=== PATIENT | female | born 1990 | race American Indian/Alaskan Native ===

== ENCOUNTER 2017-01-20 10:12 | Emergency (ER) | payer OTHER, MEDICAID ==
[2017-01-20 12:18] VITALS: BP 120/86
[2017-01-20] MEDS ORDERED: TORADOL IM ONE (15:40)
[2017-01-20] MEDS ORDERED: NORCO 5/325 PO ONE (15:40)
--- NOTE | 2017-01-20 15:41 | Emergency Department Report ---
ED Back Pain/Injury HPI - General Chief Complaint: Back Pain/Injury Stated Complaint: LOWER BACK PAIN Time Seen by Provider: 01/20/17 15:26 Source: patient Limitations: No Limitations - History of Present Illness Initial Comments: 26-year-old -[place] female with a past medical history of migraines and early menopause comes in with complaint of lower back pain that started on Thursday. Patient reports that the pain is worse with standing and moving all feels like it's pulling. Patient reports it is radiating down her right leg. She has tried ibuprofen which did not help much. She does have a follow-up plan with her primary care provider on March 02. She denies any trauma no falls she denies any dysuria no nausea no vomiting. She denies any urinary incontinence or bowel incontinence. She does report that she occasionally has constipation and that she did take a laxative on Thursday to see if the pain would improve with moving her bowels. - Related Data Previous Rx's Medication Instructions Recorded Last Taken Type Butalbit/Acetamin/Caff/Codeine 1 cap PO Q6HR PRN #20 cap 07/19/15 Unknown Rx [Fioricet/Codeine [id number]] Promethazine [Phenergan TAB] 25 mg PO Q6HR PRN #20 tab 07/19/15 Unknown Rx Acetaminophen/Codeine [Tylenol #3] 1 tab PO Q6H PRN #12 tab 01/20/17 Unknown Rx Ibuprofen [Motrin 600 MG tab] 600 mg PO Q8H PRN #40 tablet 01/20/17 Unknown Rx Allergies Allergy/AdvReac Type Severity Reaction Status Date / Time No Known Allergies Allergy Verified 01/20/17 12:19 ED Review of Systems ROS: Stated complaint: LOWER BACK PAIN Other details as noted in HPI Constitutional: denies: chills, fever Respiratory: denies: cough, shortness of breath, wheezing Cardiovascular: denies: chest pain, palpitations Genitourinary: denies: urgency, dysuria, discharge Musculoskeletal: back pain. denies: joint swelling, arthralgia ED Past Medical Hx - Past Medical History Previous Medical History?: No Additional medical history: migraines - Surgical History Additional Surgical History: 2012 - Social History Smoking Status: Never Smoker Substance Use Type: Alcohol - Medications Home Medications: Home Medications Medication Instructions Recorded Confirmed Last Taken Type Butalbit/Acetamin/Caff/Codeine 1 cap PO Q6HR PRN #20 cap 07/19/15 Unknown Rx [Fioricet/Codeine [id number]] Promethazine [Phenergan TAB] 25 mg PO Q6HR PRN #20 tab 07/19/15 Unknown Rx Acetaminophen/Codeine [Tylenol #3] 1 tab PO Q6H PRN #12 tab 01/20/17 Unknown Rx Ibuprofen [Motrin 600 MG tab] 600 mg PO Q8H PRN #40 tablet 01/20/17 Unknown Rx ED Physical Exam - General Limitations: No Limitations General appearance: alert, in no apparent distress - Head Head exam: Present: atraumatic, normocephalic - Eye Eye exam: Present: normal appearance, PERRL, EOMI - Expanded Neurological Exam Expanded Cranial nerves: EOM's Intact: Normal, Gag Reflex: Normal, Tongue Deviation: Normal Cerebellar function: Finger to Nose: Normal, Heel to Ramirez: Normal, Romberg: Normal ED Course Vital Signs 01/20/17 01/20/17 01/20/17 12:14 16:19 16:20 Temperature 98.4 F Pulse Rate 66 Respiratory 18 16 16 Rate Blood Pressure 120/86 O2 Sat by Pulse 99 Oximetry ED Medical Decision Making - Medical Decision Making Patient's been evaluated by this provider fast track based on history and physical which I patient would've Toradol injection of 60 mg IM and on [place] 2 tablets 5/325 mg. Discussed the patient will reevaluate her once the pain medicine has kicked in. Verbalized understanding Critical care attestation.: If time is entered above; I have spent that time in minutes in the direct care of this critically ill patient, excluding procedure time. ED Disposition Clinical Impression: Lumbar back pain with radiculopathy affecting left lower extremity, Lumbar back pain with radiculopathy affecting right lower extremity Disposition: DISCHARGED TO HOME OR SELFCARE Is pt being admited?: No Does the pt Need Aspirin: No Condition: Stable Instructions: Sciatica (ED), Lumbar Radiculopathy (ED), Heat Pack Application ( ED) Additional Instructions: Keep your appointment with your primary care physician Take medication as prescribed. Prescriptions: Acetaminophen/Codeine [Tylenol #3] 1 tab PO Q6H PRN #12 tab PRN Reason: Pain Ibuprofen [Motrin 600 MG tab] 600 mg PO Q8H PRN #40 tablet PRN Reason: Pain Referrals: [facility] [Outside] - 3-5 Days LAYNE FLORES MD [Referring] - 3-5 Days JESUS TUBBS MD [Referring] - 3-5 Days PRIMARY CAREMD [Primary Care Provider] - 3-5 Days Forms: Work/School Release Form
[2017-01-20 15:59] LABS: Bilirubin,Urine NEG (Negative); Blood,Urine NEG (Negative); Ketones,Urine NEG (Negative); Leukocyte Esterase,Urine NEG (Negative); Mucus,Urine 3+ /HPF; Nitrite,Urine NEG (Negative); Protein,Urine <15 mg/dL mg/dL (Negative); Urobilinogen,Urine < 2.0 mg/dL (<2.0)
--- NOTE | 2017-01-20 20:27 | XRay Report ---
FINAL REPORT EXAM: XR SPINE LUMBOSACRAL 2-3V HISTORY: lower back pain TECHNIQUE: Lumbar spine 2 views PRIORS: None. FINDINGS: Vertebral bodies demonstrate normal height and alignment. The disc spaces are within normal limits. There is no evidence of spondylolisthesis. Transverse and spinous processes are intact SI joints are unremarkable. IMPRESSION: Negative lumbar spine series
--- NOTE | 2017-01-20 20:56 | Event Note ---
Date: 01/20/17 Patient is a 26-year-old female who was signed off to me by VIDHI Scales. Patient here for low back pain as indicated in visit note. Patient will be given pain medication and to follow up with her primary care physician. When into the room to discuss results the patient the patient was not in the room. Discharge report and instructions printed in case patient returns. Lumbar series clear, no acute injury dislocation or fractures.
== END 2017-01-20 21:00 | disposition home or self-care (01) ==
LOC: ED 10:12
DX: M54.5 Low back pain (principal)
CPT/HCPCS: 72100; 81001; 81025; 87086; 96372; 99283; J1885